=== PATIENT | male | born 1990 | race Two or more races ===

== ENCOUNTER 2017-03-08 03:17 | Emergency (ER) | payer OTHER ==
[2017-03-08 03:02] LABS: URINE APPEARANCE CLEAR; URINE BILIRUBIN NEG (NEG); URINE BLOOD NEG (NEG); URINE COLOR YELLOW; URINE GLUCOSE NEG (NEG); URINE KETONE NEG (NEG); URINE LEUKOCYTE ESTERASE NEG (NEG); URINE NITRATE NEG (NEG); URINE PROTEIN NEG (NEG); URINE SPECIFIC GRAVITY 1.023 (1.003-1.035)
[2017-03-08 03:06] LABS: CULTURE INDICATED? NO
[2017-03-10 02:28] LABS: CHLAMYDIA TRACH Not Detected (Not Detected); N GONOR Not Detected (Not Detected)
== END 2017-03-08 03:26 | disposition home or self-care (01) ==
LOC: CED 03:17
PROVIDERS: Nurse Practitioner Family
DX: N34.1 Nonspecific urethritis (principal); F17.210 Nicotine dependence, cigarettes, uncomplicated
CPT/HCPCS: 81003; 87491; 87591; 96372; 99283; J0696